=== PATIENT | female | born 1955 | race Caucasian/White ===

== ENCOUNTER 2017-06-14 18:36 | Emergency (ER) | payer OTHER ==
[2017-06-14 18:45] VITALS: BP 142/83; PULSE 90; TEMP 98.3; BMI 26.1
[2017-06-14] MEDS ORDERED: IBUPROFEN 400 MG TABLET (FP) PO ONE ×2 (19:58→20:02)
--- NOTE | 2017-06-14 20:01 | PDOC ---
History of Present Illness - General Chief Complaint: Pain, Acute Stated Complaint: PAIN, ACUTE Time Seen by Provider: 06/14/17 18:58 History Source: Patient Exam Limitations: No Limitations - History of Present Illness Initial Comments: 06/14/17 22:51 Chief complaint: Right lateral rib tenderness History of present illness: Patient is a 62-year-old female with a history of diverticulitis, hyperlipidemia, GERD, renal calculi and cholelithiasis here today complaining of right lateral rib tenderness after bending over a seat pushing something in that area in her car a few days ago. Patient reports the pain is worse with palpation or with movement of torso bilaterally. Denies any nausea, vomiting, any urinary symptoms. Patient would like x-ray of rib area pointing to her right lateral distal ribs where area is tender. Patient has not taken anything for pain is requesting some ibuprofen. She denies any difficulty breathing or shortness of breath. 06/14/17 23:06 06/14/17 23:08 Timing/Duration: intermittent (WITH MOVEMENT) Severity: moderate Associated Symptoms: reports: other (RT. LATERAL RIB PAIN ) Past History - Past Medical History Allergies/Adverse Reactions: Allergies Allergy/AdvReac Type Severity Reaction Status Date / Time No Known Allergies Allergy Verified 06/14/17 18:45 Home Medications: Ambulatory Orders Atorvastatin Ca [Lipitor] 20 mg PO DAILY 03/23/15 Naproxen [Naprosyn -] 500 mg PO BID PRN #14 tablet 06/14/17 Anemia: No Asthma: No Cancer: No Cardiac Disorders: No CVA: No COPD: No CHF: No Dementia: No Diabetes: No GI Disorders: Yes (gerd/diverticulitis) Disorders: No HTN: No Hypercholesterolemia: Yes Liver Disease: No Seizures: No Thyroid Disease: No - Surgical History Abdominal Surgery: No Appendectomy: No Cardiac Surgery: No Cholecystectomy: No Lung Surgery: No Neurologic Surgery: No Orthopedic Surgery: No - Suicide/Smoking/Psychosocial Hx Smoking History: Never smoked Hx Alcohol Use: No Drug/Substance Use Hx: No Substance Use Type: None Review of Systems - Review of Systems Able to Perform ROS?: Yes Constitutional: No: Symptoms Reported HEENTM: No: Symptoms Reported Respiratory: No: Symptoms reported Cardiac (ROS): No: Symptoms Reported ABD/GI: No: Symptoms Reported : No: Symptoms Reported Musculoskeletal: Yes: Joint Pain (RT. LATERAL RIB TENDERNESS) Integumentary: Yes: Symptoms Reported Neurological: Yes: Symptoms reported *Physical Exam - Vital Signs Last Vital Signs Temp Pulse Resp BP Pulse Ox 98.3 F 90 18 142/83 98 06/14/17 18:42 06/14/17 18:42 06/14/17 18:42 06/14/17 18:42 06/14/17 18:42 - Physical Exam General Appearance: Yes: Appropriately Dressed Respiratory/Chest: positive: Lungs Clear, Normal Breath Sounds. negative: Chest Tender, Respiratory Distress Cardiovascular: positive: Regular Rhythm, Regular Rate, S1, S2 Gastrointestinal/Abdominal: positive: Normal Bowel Sounds, Soft, Other. negative: Tender, Organomegaly, Distended, Guarding, Rebound, Tenderness, Hepatomegaly, Spleenomegaly Musculoskeletal: positive: Normal Inspection, Other (RT. LATERAL PROXIMAL RIB PAIN point tenderness). negative: CVA Tenderness, CVA Tenderness (R), CVA Tenderness (L), Vertebral Tenderness Extremity: positive: Normal Capillary Refill, Normal Inspection, Normal Range of Motion Integumentary: positive: Normal Color Neurologic: positive: Fully Oriented, Alert, Normal Response, Responsive Medical Decision Making - Medical Decision Making 06/14/17 22:54 Patient is a 62-year-old female with a history of diverticulitis, GERD, renal calculi and cholelithiasis here today complaining of right lateral rib tenderness after bending over a seat pushing something in that area in her car a few days ago. Patient reports the pain is worse with palpation or with movement of torso bilaterally. Denies any nausea, vomiting, any urinary symptoms. Patient would like x-ray of rib area pointing to her right lateral distal ribs where area is tender. Patient has not taken anything for pain is requesting some ibuprofen. She denies any difficulty breathing or shortness of breath. Patient denies any fall. R/O rib fracture r/o acute cholelithiasis r/o renal calculi hematuria urine C & S PLAN: ibuprofen 800 mg po now naprosyn 500 mg bid prn #14 tabs xray rt. rib series incidental note is made of a 0.7 density within the partially imaged right upper abdomen which could be cholelithiasis or nephrolithiasis per Dr. Jung no acute fracture noted of the ribs Will get ultrasound of abdomen limited Dr. Jung does not think that this is acute cholecystitis or any renal calculi noted 06/14/17 22:58 Laboratory Tests 06/14/17 22:40 Urine Color Yellow Urine Appearance Slcloudy Urine pH 5.0 D Ur Specific [place] Pending Urine Glucose (UA) Negative Urine Ketones Trace H Urine Blood 1+ H Urine Nitrite Negative Urine Bilirubin Negative Urine Urobilinogen Negative Ur Leukocyte Esterase Pending Urine RBC 2 Urine WBC 4 Ur Epithelial Cells Rare Urine Bacteria Rare Hyaline Casts 1 Urine Mucus Few 06/14/17 22:59 06/14/17 23:03 06/14/17 23:09 *DC/Admit/Observation/Transfer Diagnosis at time of Disposition: Contusion of rib on right side Qualifiers: Encounter type: initial encounter Qualified Code(s): S20.211A - Contusion of right front wall of thorax, initial encounter Hematuria Qualifiers: Hematuria type: unspecified type Qualified Code(s): R31.9 - Hematuria, unspecified - Discharge Dispostion Disposition: HOME Condition at time of disposition: Stable - Prescriptions Prescriptions: Naproxen [Naprosyn -] 500 mg PO BID PRN #14 tablet PRN Reason: Pain - Patient Instructions Additional Instructions: Follow-up with your primary care provider next week And return to emergency room if any nausea, vomiting, chills, fever, or worsening pain Drink more fluids especially water And avoid twisting your torso or lying on your right side An follow up with urologist for further evaluation PATIENT voiced understanding of discharge instructions and all questions were answered
[2017-06-14 22:34] LABS: URINE APPEARANCE SLCLOUDY; URINE BILIRUBIN NEGATIVE (NEGATIVE); URINE BLOOD 1+ (NEGATIVE); URINE COLOR YELLOW; URINE GLUCOSE (UA) NEGATIVE (NEGATIVE); URINE KETONE TRACE (NEGATIVE); URINE NITRITE NEGATIVE (NEGATIVE); URINE UROBILINOGEN NEGATIVE mg/dL (0.2-1.0)
[2017-06-14 22:47] LABS: URINE PROTEIN 1+ (NEGATIVE)
[2017-06-14 22:48] LABS: URINE BACTERIA RARE /hpf (NONE SEEN); URINE HYALINE CAST 1 /lpf; URINE MUCUS FEW; URINE RBC 2 /hpf (0-3); URINE WBC 4 /hpf (3-5)
[2017-06-15 11:37] LABS: URINE LEUK ESTERASE Negative (NEGATIVE)
== END 2017-06-14 23:11 | disposition home or self-care (01) ==
LOC: JERFT 18:36
DX: S20.211A Contusion of right front wall of thorax, initial encounter (principal); R31.9 Hematuria, unspecified; E78.5 Hyperlipidemia, unspecified; Z87.19 Personal history of other diseases of the digestive system; Z87.442 Personal history of urinary calculi; X58.XXXA Exposure to other specified factors, initial encounter; Y93.89 Activity, other specified; Y92.89 Other specified places as the place of occurrence of the external cause
CPT/HCPCS: 71101-TC-RT; 76705-TC; 81003; 81015; 87086; 99281-25

== ENCOUNTER 2021-07-24 19:44 | Emergency (ER) | payer OTHER ==
[2021-07-24 20:03] VITALS: BMI 27.1
[2021-07-24] MEDS ORDERED: ACETAMINOPHEN 325 MG TABLET (FP) PO ONE (22:52)
[2021-07-24] MEDS ORDERED: LACTATED RINGERS SOLUTION 1000 ML INFUS.BAG IV ONE (22:52)
[2021-07-24] MEDS ORDERED: guaiFENesin 200 MG/10 ML 10 ML UNIT-DOSE CUPS PO ONE (22:52)
[2021-07-24] MEDS ORDERED: guaiFENesin 200 MG/10 ML 10 ML UNIT-DOSE CUPS ONE (22:57)
[2021-07-24] MEDS ORDERED: ACETAMINOPHEN 325 MG TABLET (FP) ONE (22:57)
[2021-07-24 23:44] LABS: BASO % 1.2 % (0-2.0); EOS % 0.1 % (0-4.5); HEMATOCRIT 42.2 % (32.4-45.2); HEMOGLOBIN 14.6 GM/dL (10.7-15.3); MCH 29.5 pg (25.7-33.7); MCHC 34.5 g/dl (32.0-36.0); MEAN CELL VOLUME 85.4 fl (80-96); MEAN PLT VOLUME 7.9 fl (7.5-11.1); MONO % 7.5 % (3.8-10.2); NEUT % 66.2 % (42.8-82.8); PLATELET COUNT 299 10^3/uL (134-434); RBC 4.95 M/mm3 (3.60-5.2); RDW 14.2 % (11.6-15.6); WHITE BLOOD COUNT 5.6 K/mm3 (4.0-10.0)
[2021-07-25 00:03] LABS: CHLORIDE 105 mmol/L (98-107); SODIUM 139 mmol/L (136-145)
[2021-07-25 00:05] LABS: CALCIUM 8.6 mg/dL (8.5-10.1)
[2021-07-25 00:06] LABS: ALBUMIN 3.9 g/dl (3.4-5.0); ANION GAP 5 MMOL/L (8-16); BLOOD UREA NITROGEN 17.2 mg/dL (7-18); CO2 29 mmol/L (21-32); GLUCOSE,RANDOM 110 mg/dL (74-106); LIPASE 155 U/L (73-393); MAGNESIUM 1.4 mg/dL (1.8-2.4)
[2021-07-25 00:09] LABS: CREATININE 0.8 mg/dL (0.55-1.3); SGOT/AST 44 U/L (15-37); SGPT/ALT 70 U/L (13-61)
[2021-07-25 00:10] LABS: BILIRUBIN,TOTAL 0.2 mg/dL (0.2-1); TOT PROT 7.2 g/dl (6.4-8.2)
[2021-07-25 00:12] LABS: ALK PHOS 88 U/L (45-117)
[2021-07-25 00:17] LABS: EPI CELLS 32 /uL (0-25.1); HYALINE CASTS 5 /uL (0-3.1); URINE APPEARANCE CLEAR; URINE BACTERIA 556 /uL (0-1359); URINE BILIRUBIN NEGATIVE (NEGATIVE); URINE COLOR YELLOW; URINE GLUCOSE (UA) NEGATIVE (NEGATIVE); URINE KETONE 1+ (NEGATIVE); URINE LEUK ESTERASE NEGATIVE (NEGATIVE); URINE NITRITE NEGATIVE (NEGATIVE); URINE PROTEIN TRACE (NEGATIVE); URINE RBC 14 /uL (0-23.9); URINE UROBILINOGEN 0.2 mg/dL (0.2-1.0); URINE WBC 48 /uL (0-25.8)
[2021-07-25] MEDS ORDERED: CASIRIVIMAB/IMDEVIMAB 10 ML in SODIUM CHLORIDE 100 ML IVPB ONE (01:22)
[2021-07-25 02:18] VITALS: TEMP 98
[2021-07-25 03:42] VITALS: BP 162/63; PULSE 89
== END 2021-07-25 04:36 | disposition home or self-care (01) ==
LOC: JER 19:44
DX: U07.1 COVID-19 (principal); R55 Syncope and collapse
CPT/HCPCS: 36415; 71046-TC-FY; 80053; 81003; 83690; 83735; 84484; 85025; 87086; 87804; 93005; 93010; 99285-25; C9803; Q0240; U0003; U0005

== ENCOUNTER 2023-01-11 16:04 | Emergency (ER) | payer OTHER ==
[2023-01-11 16:16] VITALS: BP 154/70; PULSE 78; RESP 18; TEMP 98; BMI 27.1
[2023-01-11] MEDS ORDERED: ACETAMINOPHEN 500 MG TABLET (FP) PO ONE (17:03)
[2023-01-11] MEDS ORDERED: ACETAMINOPHEN 500 MG TABLET (FP) ONE (17:16)
[2023-01-11 17:40] LABS: HEMATOCRIT 39.6 % (32.4-45.2); MCH 29.5 pg (25.7-33.7); MCHC 35.3 g/dl (32.0-36.0); MEAN CELL VOLUME 83.6 fl (80-96); MEAN PLT VOLUME 8.6 fl (7.5-11.1); PLATELET COUNT 306 10^3/uL (134-434); RBC 4.74 M/mm3 (3.60-5.2); RDW 13.7 % (11.6-15.6); WHITE BLOOD COUNT 9.7 K/mm3 (4.0-10.0)
[2023-01-11 18:59] LABS: ALBUMIN 3.7 g/dl (3.4-5.0); ALK PHOS 83 U/L (45-117); ANION GAP 11 MMOL/L (8-16); BILIRUBIN,DIRECT 0.1 mg/dL (0.0-0.2); BILIRUBIN,TOTAL 0.3 mg/dL (0.2-1); BLOOD UREA NITROGEN 20.6 mg/dL (7-18); CALCIUM 9.1 mg/dL (8.5-10.1); CHLORIDE 108 mmol/L (98-107); CO2 21 mmol/L (21-32); CREATININE 0.7 mg/dL (0.55-1.3); GLUCOSE,RANDOM 90 mg/dL (74-106); POTASSIUM 3.8 mmol/L (3.5-5.1); SGOT/AST 30 U/L (15-37); SGPT/ALT 46 U/L (13-61); SODIUM 140 mmol/L (136-145); TOT PROT 6.9 g/dl (6.4-8.2)
== END 2023-01-11 22:02 | disposition home or self-care (01) ==
LOC: JERFT 16:04
DX: R07.89 Other chest pain (principal); M25.511 Pain in right shoulder
CPT/HCPCS: 36415; 71046-TC-FY; 80048; 80076; 82550; 84484; 85027; 93005; 93010; 99285-25

== ENCOUNTER 2024-03-14 23:17 | Emergency (ER) | payer OTHER ==
[2024-03-14 23:32] VITALS: BMI 27.1
[2024-03-14] MEDS: LIDOCAINE 5% TOPICAL PATCH TP ONE (23:42)
[2024-03-14] MEDS: LIDOCAINE PATCH REMOVAL MC SCH (23:42)
[2024-03-14] MEDS ORDERED: LIDOCAINE 4% PATCH TP ONE (23:51)
[2024-03-15] MEDS: ACETAMINOPHEN 1000 MG/100 ML BAG IVPB ONE ×2 (00:58→01:15)
[2024-03-15] MEDS: SODIUM CHLORIDE 0.9% 500 ML INFUS.BAG IV ONE (01:14)
[2024-03-15] MEDS: diazePAM 5 MG TABLET PO ONE (01:14)
[2024-03-15] MEDS ORDERED: ACETAMINOPHEN INJECTION 100 ML IVPB ONE (01:16)
[2024-03-15 01:19] LABS: BASO % 0.2 % (0-2.0); EOS % 0.1 % (0-4.5); HEMATOCRIT 43.2 % (32.4-45.2); HEMOGLOBIN 14.7 GM/dL (10.7-15.3); LYMPH % 4.5 % (8-40); MCH 29.1 pg (25.7-33.7); MCHC 34.1 g/dl (32.0-36.0); MEAN CELL VOLUME 85.2 fl (80-96); MEAN PLT VOLUME 7.3 fl (7.5-11.1); MONO % 5.7 % (3.8-10.2); NEUT % 89.5 % (42.8-82.8); PLATELET COUNT 296 10^3/uL (134-434); RBC 5.07 M/mm3 (3.60-5.2); RDW 14.9 % (11.6-15.6); WHITE BLOOD COUNT 15.6 K/mm3 (4.0-10.0)
[2024-03-15] MEDS: PIPERACILLIN/TAZOB 3.375 GM 3.375 GM in DEXTROSE 5%-WATER - 50 ML IVPB ONE (01:35)
[2024-03-15 01:36] LABS: POTASSIUM 3.9 mmol/L (3.5-5.1)
[2024-03-15] MEDS ORDERED: PIPERACILLIN/TAZOB 3.375 GM 3.375 GM/50 ML BAG IVPB ONE (01:37)
[2024-03-15 01:38] LABS: CALCIUM 9.2 mg/dL (8.5-10.1)
[2024-03-15 01:39] LABS: ALBUMIN 3.9 g/dl (3.4-5.0); BLOOD UREA NITROGEN 23.5 mg/dL (7-18)
[2024-03-15 01:42] LABS: CREATININE 1.3 mg/dL (0.55-1.3)
[2024-03-15 01:44] LABS: BILIRUBIN,TOTAL 0.6 mg/dL (0.2-1); TOT PROT 7.3 g/dl (6.4-8.2)
[2024-03-15 03:17] VITALS: RESP 17
[2024-03-15] MEDS ORDERED: AMOX TR/POT CLAV 875MG/125MG TABLETS (FP) PO ONE (04:32)
[2024-03-15 06:17] VITALS: BP 125/72; PULSE 95; TEMP 98.2
== END 2024-03-15 06:54 | disposition home or self-care (01) ==
LOC: JER 23:17
PROC: 3E03329 Introduction of Other Anti-infective into Peripheral Vein, Percutaneous Approach (ICD-10-PCS; principal; 2024-03-15)
PROC: 3E033NZ Introduction of Analgesics, Hypnotics, Sedatives into Peripheral Vein, Percutaneous Approach (ICD-10-PCS; 2024-03-15)
DX: K52.9 Noninfective gastroenteritis and colitis, unspecified (principal); M54.50 Low back pain, unspecified; R51.9 Headache, unspecified; R50.9 Fever, unspecified; J34.89 Other specified disorders of nose and nasal sinuses; M79.10 Myalgia, unspecified site; R11.2 Nausea with vomiting, unspecified; R53.81 Other malaise; Z20.822 Contact with and (suspected) exposure to COVID-19
CPT/HCPCS: 0241U-QW; 36415; 74177-TC; 80053; 85025; 93005; 93010; 96365; 96375; 99285-25; J0131; Q9967

== ENCOUNTER 2024-05-16 12:41 | Observation (INO) | payer OTHER ==
[2024-05-16] MEDS ORDERED: FAMOTIDINE 20 MG TABLET ONE (14:03)
[2024-05-16] MEDS ORDERED: NITROGLYCERIN SUBLINGUAL 1/150 0.4 MG TAB ONE (14:04)
[2024-05-16] MEDS ORDERED: MAG HYDROX/AL HYDROX/SIMETH 30 ML UNIT-DOSE CUP ONE (14:05)
[2024-05-16 14:32] LABS: BASO % 0.8 % (0-2.0); EOS % 1.6 % (0-4.5); HEMATOCRIT 42.6 % (32.4-45.2); HEMOGLOBIN 14.4 GM/dL (10.7-15.3); MCH 28.9 pg (25.7-33.7); MCHC 33.8 g/dl (32.0-36.0); MEAN CELL VOLUME 85.5 fl (80-96); MEAN PLT VOLUME 8.1 fl (7.5-11.1); MONO % 7.5 % (3.8-10.2); NEUT % 59.1 % (42.8-82.8); PLATELET COUNT 340 10^3/uL (134-434); RBC 4.98 M/mm3 (3.60-5.2); RDW 14.2 % (11.6-15.6); WHITE BLOOD COUNT 7.5 K/mm3 (4.0-10.0)
[2024-05-16] MEDS: MAG HYDROX/AL HYDROX/SIMETH 30 ML UNIT-DOSE CUP PO ONE (14:32)
[2024-05-16] MEDS: NITROGLYCERIN SUBLINGUAL 1/150 0.4 MG TAB SL ONE (14:32)
[2024-05-16] MEDS: FAMOTIDINE 20 MG TABLET PO ONE (14:32)
[2024-05-16 14:33] LABS: URINE APPEARANCE CLEAR; URINE BILIRUBIN NEGATIVE (NEGATIVE); URINE COLOR YELLOW; URINE GLUCOSE (UA) NEGATIVE (NEGATIVE); URINE KETONE NEGATIVE (NEGATIVE); URINE LEUK ESTERASE NEGATIVE (NEGATIVE); URINE NITRITE NEGATIVE (NEGATIVE); URINE PROTEIN NEGATIVE (NEGATIVE); URINE UROBILINOGEN 0.2 mg/dL (0.2-1.0)
[2024-05-16 14:58] LABS: CHLORIDE 116 mmol/L (98-107); SODIUM 146 mmol/L (136-145)
[2024-05-16 15:00] LABS: CALCIUM 7.2 mg/dL (8.5-10.1); CO2 21 mmol/L (21-32)
[2024-05-16 15:01] LABS: BLOOD UREA NITROGEN 15.7 mg/dL (7-18); GLUCOSE,RANDOM 75 mg/dL (74-106)
[2024-05-16 15:03] LABS: ANION GAP 9 mmol/L (4-13); POTASSIUM 2.6 mmol/L (3.5-5.1)
[2024-05-16 15:04] LABS: CREATININE 0.4 mg/dL (0.55-1.3); SGOT/AST 21 U/L (15-37); SGPT/ALT 29 U/L (13-61)
[2024-05-16 15:05] LABS: BILIRUBIN,TOTAL 0.4 mg/dL (0.2-1); TOT PROT 5.3 g/dl (6.4-8.2)
[2024-05-16 15:07] LABS: ALK PHOS 63 U/L (45-117)
[2024-05-16] MEDS ORDERED: POTASSIUM CHLORIDE ORAL LIQUID 20 MEQ/15 ML ONE (15:13)
[2024-05-16] MEDS: POTASSIUM CHLORIDE ORAL LIQUID 20 MEQ/15 ML PO ONE (15:26)
[2024-05-16] MEDS: ACETAMINOPHEN 325 MG TABLET (FP) PO ONE (15:37)
[2024-05-16] MEDS: LABETALOL HCL 5 MG/1 ML (100MG/20 ML VIAL) IVPUSH ONE (15:38)
[2024-05-16 15:54] VITALS: BMI 26.3
[2024-05-16] MEDS ORDERED: ASPIRIN 81 MG CHEWABLE TABLETS ONE (17:47)
[2024-05-16] MEDS: ASPIRIN 81 MG CHEWABLE TABLETS PO ONE (17:49)
[2024-05-16] MEDS: LOSARTAN POTASSIUM 50 MG TABLET PO SCH (18:23)
[2024-05-16] MEDS: amLODIPine BESYLATE 5 MG TABLET (FP) PO SCH (18:23)
[2024-05-16] MEDS: HEPARIN NA (PORCINE) 5,000 UNITS/ML 1ML VIAL SQ SCH (21:21)
[2024-05-16] MEDS: LOSARTAN POTASSIUM 50 MG TABLET PO ONE (22:12)
[2024-05-17 07:13] LABS: BASO % 0.7 % (0-2.0); EOS % 2.7 % (0-4.5); HEMATOCRIT 43.3 % (32.4-45.2); HEMOGLOBIN 14.6 GM/dL (10.7-15.3); LYMPH % 28.9 % (8-40); MCH 28.8 pg (25.7-33.7); MCHC 33.8 g/dl (32.0-36.0); MEAN CELL VOLUME 85.2 fl (80-96); MEAN PLT VOLUME 8.4 fl (7.5-11.1); MONO % 6.9 % (3.8-10.2); NEUT % 60.8 % (42.8-82.8); PLATELET COUNT 327 10^3/uL (134-434); RBC 5.08 M/mm3 (3.60-5.2); RDW 14.5 % (11.6-15.6); WHITE BLOOD COUNT 6.8 K/mm3 (4.0-10.0)
[2024-05-17 07:22] LABS: POTASSIUM 3.3 mmol/L (3.5-5.1)
[2024-05-17 07:27] LABS: BLOOD UREA NITROGEN 16.1 mg/dL (7-18)
[2024-05-17 07:30] LABS: CREATININE 0.7 mg/dL (0.55-1.3)
[2024-05-17 07:31] LABS: BILIRUBIN,TOTAL 0.7 mg/dL (0.2-1); TOT PROT 6.8 g/dl (6.4-8.2)
[2024-05-17 07:34] LABS: ALBUMIN 3.7 g/dl (3.4-5.0); CALCIUM 8.8 mg/dL (8.5-10.1)
[2024-05-17] MEDS: PANTOPRAZOLE 20 MG TABLET PO SCH (09:53)
[2024-05-17] MEDS: ACETAMINOPHEN 325 MG TABLET (FP) PO PRN (14:46)
[2024-05-17 15:25] VITALS: BP 127/64; PULSE 83; RESP 18; TEMP 97.9
[2024-05-17] MEDS ORDERED: ATORVASTATIN CA 20 MG TABLET (FP) PO SCH (22:00)
== END 2024-05-17 18:30 | disposition home or self-care (01) ==
LOC: JER 12:41 → JERBED 16:14 → UNDOADMOB 16:14 → OBSVTOIN 17:53 → INTOOBSV 17:53 → J4W 18:28 → JERBED 18:28 → J4W 05-17 12:06 → JERBED 05-17 13:00
PROVIDERS: ADMIT Internal Medicine; ATTEND Internal Medicine
DX: R07.89 Other chest pain (principal); I10 Essential (primary) hypertension; E78.5 Hyperlipidemia, unspecified; K21.9 Gastro-esophageal reflux disease without esophagitis; E87.6 Hypokalemia; E87.0 Hyperosmolality and hypernatremia
CPT/HCPCS: 36415; 70450-TC; 71045-TC-FY; 71275-TC; 74174-TC; 80053; 80061; 81003; 82088; 83036; 83735; 84443; 84484; 85025; 87086; 93005; 93010; 99285-25; G0378; J1644; Q9967

== ENCOUNTER 2024-06-04 12:17 | Observation (INO) | payer OTHER ==
[2024-06-04 12:32] VITALS: BMI 26.3
[2024-06-04 14:39] LABS: HEMATOCRIT 41.8 % (32.4-45.2); HEMOGLOBIN 14.3 GM/dL (10.7-15.3); MCH 28.5 pg (25.7-33.7); MCHC 34.1 g/dl (32.0-36.0); MEAN CELL VOLUME 83.5 fl (80-96); MEAN PLT VOLUME 7.8 fl (7.5-11.1); PLATELET COUNT 408 10^3/uL (134-434); RBC 5.01 M/mm3 (3.60-5.2); RDW 13.9 % (11.6-15.6); WHITE BLOOD COUNT 11.2 K/mm3 (4.0-10.0)
[2024-06-04 14:40] LABS: VENOUS BASE EXCESS 5.1 mmol/L (-2-2); VENOUS O2 SATURATION 49.7 % (70-80); VENOUS PCO2 33.9 mmHg (38-52); VENOUS PH 7.528 (7.310-7.410)
[2024-06-04] MEDS ORDERED: ASPIRIN 81 MG CHEWABLE TABLETS ONE (14:40)
[2024-06-04] MEDS: ASPIRIN 81 MG CHEWABLE TABLETS PO ONE (14:44)
[2024-06-04 14:48] LABS: INR 1.09 (0.83-1.09); PROTHROMBIN TIME (PATIENT) 12.5 SEC (9.7-13.0)
[2024-06-04 15:00] LABS: ANISOCYTOSIS 0; MACROCYTOSIS 0
[2024-06-04 15:06] LABS: CHLORIDE 104 mmol/L (98-107); SODIUM 140 mmol/L (136-145)
[2024-06-04 15:08] LABS: CALCIUM 8.6 mg/dL (8.5-10.1)
[2024-06-04 15:09] LABS: ALBUMIN 3.9 g/dl (3.4-5.0); BLOOD UREA NITROGEN 22.5 mg/dL (7-18); CO2 27 mmol/L (21-32); GLUCOSE,RANDOM 89 mg/dL (74-106)
[2024-06-04 15:12] LABS: CREATININE 0.8 mg/dL (0.55-1.3); SGOT/AST 20 U/L (15-37); SGPT/ALT 30 U/L (13-61)
[2024-06-04 15:14] LABS: BILIRUBIN,TOTAL 0.6 mg/dL (0.2-1); TOT PROT 7.4 g/dl (6.4-8.2)
[2024-06-04 15:15] LABS: ALK PHOS 91 U/L (45-117)
[2024-06-04 15:56] LABS: ANION GAP 9 mmol/L (4-13); MAGNESIUM 0.8 mg/dL (1.8-2.4); POTASSIUM 2.6 mmol/L (3.5-5.1)
[2024-06-04] MEDS ORDERED: MAGNESIUM SULFATE IN WATER 2 GM/50 ML IVPB IVPB ONE (16:13)
[2024-06-04] MEDS ORDERED: POTASSIUM CHLORIDE ORAL LIQUID 20 MEQ/15 ML ONE (16:14)
[2024-06-04] MEDS: MAGNESIUM SULFATE IN WATER 2 GM/50 ML IVPB IVPB ONE (16:31)
[2024-06-04] MEDS: POTASSIUM CHLORIDE ORAL LIQUID 20 MEQ/15 ML PO ONE (16:32)
[2024-06-04] MEDS: POTASSIUM CHLORIDE TABS 20 MEQ TABLET.ER (FP) PO ONE (16:45)
[2024-06-04] MEDS ORDERED: NITROGLYCERIN SUBLINGUAL 1/150 0.4 MG TAB SL PRN (17:27)
[2024-06-04] MEDS: HEPARIN NA (PORCINE) 5,000 UNITS/ML 1ML VIAL SQ SCH (22:53)
[2024-06-05 08:39] LABS: BASO % 0.6 % (0-2.0); EOS % 0.9 % (0-4.5); HEMATOCRIT 40.9 % (32.4-45.2); HEMOGLOBIN 13.8 GM/dL (10.7-15.3); LYMPH % 18.3 % (8-40); MCH 28.6 pg (25.7-33.7); MCHC 33.7 g/dl (32.0-36.0); MEAN PLT VOLUME 7.6 fl (7.5-11.1); MONO % 7.1 % (3.8-10.2); NEUT % 73.1 % (42.8-82.8); PLATELET COUNT 371 10^3/uL (134-434); RBC 4.82 M/mm3 (3.60-5.2); RDW 14.4 % (11.6-15.6); WHITE BLOOD COUNT 8.4 K/mm3 (4.0-10.0)
[2024-06-05 08:52] LABS: POTASSIUM 3.4 mmol/L (3.5-5.1)
[2024-06-05 08:54] LABS: BLOOD UREA NITROGEN 20.1 mg/dL (7-18); CALCIUM 8.1 mg/dL (8.5-10.1)
[2024-06-05 08:58] LABS: CREATININE 0.6 mg/dL (0.55-1.3)
[2024-06-05] MEDS ORDERED: ACETAMINOPHEN 500 MG TABLET (FP) PO PRN (09:20)
[2024-06-05] MEDS: MAGNESIUM 2GM/50ML STERILE WATER IVPB IVPB ONE (11:32)
[2024-06-05] MEDS: PANTOPRAZOLE 20 MG TABLET PO SCH (11:33)
[2024-06-05] MEDS: ATORVASTATIN CA 20 MG TABLET (FP) PO SCH (11:33)
[2024-06-05] MEDS: LOSARTAN POTASSIUM 50 MG TABLET PO SCH (11:33)
[2024-06-05] MEDS: amLODIPine BESYLATE 5 MG TABLET (FP) PO SCH (11:33)
[2024-06-05] MEDS: POTASSIUM CHLORIDE ORAL LIQUID 20 MEQ/15 ML PO ONE (11:37)
[2024-06-05] MEDS: KCL 10 MEQ IVPB 10 MEQ/100 ML INFUS.BAG IVPB SCH (11:38)
[2024-06-05] MEDS: MAG HYDROX/AL HYDROX/SIMETH 30 ML UNIT-DOSE CUP PO ONE (11:39)
[2024-06-05] MEDS: COLCHICINE 0.6 MG TAB PO SCH (15:44)
[2024-06-06 01:12] VITALS: RESP 20
[2024-06-06 06:43] VITALS: TEMP 97.5
[2024-06-06 10:38] VITALS: BP 105/64; PULSE 89
== END 2024-06-06 14:49 | disposition home or self-care (01) ==
LOC: JER 12:17 → JERBED 16:32 → J4W 18:56
PROVIDERS: ADMIT Internal Medicine; ATTEND Internal Medicine
PROC: 3E033GC Introduction of Other Therapeutic Substance into Peripheral Vein, Percutaneous Approach (ICD-10-PCS; principal; 2024-06-04)
DX: R07.9 Chest pain, unspecified (principal); R10.13 Epigastric pain; I31.39 Other pericardial effusion (noninflammatory); E87.6 Hypokalemia; E83.42 Hypomagnesemia; K21.9 Gastro-esophageal reflux disease without esophagitis; K57.90 Diverticulosis of intestine, part unspecified, without perforation or abscess without bleeding; I10 Essential (primary) hypertension; E78.5 Hyperlipidemia, unspecified; R07.89 Other chest pain
CPT/HCPCS: 36415; 71046-TC-FY; 80048; 80053; 82550; 82553; 82803; 83735; 84484; 85025; 85610; 93005; 93010; 93306-TC; 93880-TC; 93971-TC; 96365; 96375; 96376; 99285-25; G0378; J1644

== ENCOUNTER 2024-11-06 12:50 | Observation (INO) | payer OTHER ==
[2024-11-06 13:02] VITALS: BMI 27.1
[2024-11-06 15:05] LABS: BASO % 0.2 % (0-2.0); EOS % 0.5 % (0-4.5); HEMATOCRIT 39.9 % (32.4-45.2); HEMOGLOBIN 13.8 GM/dL (10.7-15.3); LYMPH % 20.8 % (8-40); MCH 28.8 pg (25.7-33.7); MCHC 34.5 g/dl (32.0-36.0); MEAN CELL VOLUME 83.6 fl (80-96); MEAN PLT VOLUME 7.7 fl (7.5-11.1); MONO % 7.8 % (3.8-10.2); NEUT % 70.7 % (42.8-82.8); PLATELET COUNT 378 10^3/uL (134-434); RBC 4.78 M/mm3 (3.60-5.2); WHITE BLOOD COUNT 9.4 K/mm3 (4.0-10.0)
[2024-11-06 15:12] LABS: INR 1.14 (0.83-1.09); PROTHROMBIN TIME (PATIENT) 12.5 SEC (9.7-13.0)
[2024-11-06 15:15] LABS: ACTIVATED PTT 28.3 SECONDS (25.2-36.5)
[2024-11-06 15:28] LABS: CHLORIDE 105 mmol/L (98-107); POTASSIUM 3.1 mmol/L (3.5-5.1); SODIUM 141 mmol/L (136-145)
[2024-11-06 15:30] LABS: ALBUMIN 3.6 g/dl (3.4-5.0); ANION GAP 5 mmol/L (4-13); CO2 32 mmol/L (21-32)
[2024-11-06 15:31] LABS: BLOOD UREA NITROGEN 16.2 mg/dL (7-18); GLUCOSE,RANDOM 107 mg/dL (74-106)
[2024-11-06 15:33] LABS: SGPT/ALT 32 U/L (13-61)
[2024-11-06 15:34] LABS: CREATININE 0.8 mg/dL (0.55-1.3); SGOT/AST 26 U/L (15-37)
[2024-11-06 15:35] LABS: BILIRUBIN,TOTAL 0.5 mg/dL (0.2-1); TOT PROT 6.4 g/dl (6.4-8.2)
[2024-11-06 15:36] LABS: ALK PHOS 81 U/L (45-117)
[2024-11-06 15:38] LABS: MAGNESIUM 0.9 mg/dL (1.8-2.4)
[2024-11-06] MEDS ORDERED: MAGNESIUM SULF 50% (8.12 MEQ/2 ML-1 GM VIAL) IVPB ONE (16:05)
[2024-11-06] MEDS: SODIUM CHLORIDE 1,000 ML IV STA (16:50)
[2024-11-06] MEDS: MAGNESIUM IN WATER 4 GM/50 ML PREMIX BAG IVPB ONE (16:50)
[2024-11-06] MEDS ORDERED: KCL 10 MEQ IVPB 10 MEQ/100 ML INFUS.BAG IVPB ONE (18:07)
[2024-11-06] MEDS: KCL 10 MEQ IVPB 10 MEQ/100 ML INFUS.BAG IVPB SCH (18:17)
[2024-11-06] MEDS: KCL 20 MEQ PREMIX BAG 20 MEQ/100 ML INFUS.BAG IVPB SCH (19:16)
[2024-11-06] MEDS: MAGNESIUM SULF 50% (8.12 MEQ/2 ML-1 GM VIAL) IVPB ONE (19:45)
[2024-11-06] MEDS ORDERED: DOCUSATE SODIUM 100 MG CAPSULE (FP) PO PRN (19:54)
[2024-11-06] MEDS ORDERED: KCL 10 MEQ IVPB 20 MEQ/200 ML INFUS.BAG IVPB ONE (21:02)
[2024-11-06 23:38] VITALS: RESP 18
[2024-11-06] MEDS: D5-1/2NS+20 MEQ KCL - 20 MEQ/1,000 ML INFUS.BAG IV SCH (23:53)
[2024-11-07 02:48] LABS: POTASSIUM 3.5 mmol/L (3.5-5.1)
[2024-11-07 02:50] LABS: BLOOD UREA NITROGEN 14.9 mg/dL (7-18); CALCIUM 7.8 mg/dL (8.5-10.1)
[2024-11-07 02:54] LABS: CREATININE 0.8 mg/dL (0.55-1.3)
[2024-11-07] MEDS: ACETAMINOPHEN 325 MG TABLET (FP) PO PRN (04:16)
[2024-11-07 05:06] LABS: MAGNESIUM 2.9 mg/dL (1.8-2.4)
[2024-11-07 08:53] LABS: HEMOGLOBIN 14.7 GM/dL (10.7-15.3); MCH 28.9 pg (25.7-33.7); MCHC 34.1 g/dl (32.0-36.0); MEAN CELL VOLUME 84.7 fl (80-96); MEAN PLT VOLUME 7.9 fl (7.5-11.1); PLATELET COUNT 391 10^3/uL (134-434); RBC 5.08 M/mm3 (3.60-5.2); RDW 14.1 % (11.6-15.6); WHITE BLOOD COUNT 9.6 K/mm3 (4.0-10.0)
[2024-11-07 09:06] LABS: POTASSIUM 3.7 mmol/L (3.5-5.1)
[2024-11-07 09:08] LABS: BLOOD UREA NITROGEN 12.7 mg/dL (7-18); CALCIUM 7.8 mg/dL (8.5-10.1)
[2024-11-07 09:09] LABS: MAGNESIUM 2.9 mg/dL (1.8-2.4)
[2024-11-07 09:12] LABS: CREATININE 0.7 mg/dL (0.55-1.3); PHOSPHOROUS 3.1 mg/dL (2.5-4.9)
[2024-11-07] MEDS: PANTOPRAZOLE SOD 40 MG SUSPENSION PACKET PO SCH (09:18)
[2024-11-07] MEDS: COLCHICINE 0.6 MG TAB PO SCH (09:18)
[2024-11-07] MEDS: amLODIPine BESYLATE 5 MG TABLET (FP) PO SCH (09:26)
[2024-11-07] MEDS: LOSARTAN POTASSIUM 50 MG TABLET PO SCH (09:26)
[2024-11-07 15:27] VITALS: BP 121/67; PULSE 92; TEMP 98.7
[2024-11-07] MEDS ORDERED: ATORVASTATIN CA 20 MG TABLET (FP) PO SCH (22:00)
== END 2024-11-07 18:26 | disposition home or self-care (01) ==
LOC: JER 12:50 → JERBED 19:53 → J4S 22:31
PROVIDERS: ADMIT Internal Medicine; ATTEND Internal Medicine
PROC: 3E033GC Introduction of Other Therapeutic Substance into Peripheral Vein, Percutaneous Approach (ICD-10-PCS; principal; 2024-11-06)
DX: R07.89 Other chest pain (principal); E87.6 Hypokalemia; E83.42 Hypomagnesemia; I10 Essential (primary) hypertension; E78.5 Hyperlipidemia, unspecified; K21.9 Gastro-esophageal reflux disease without esophagitis; K59.00 Constipation, unspecified
CPT/HCPCS: 36415; 71046-TC-FY; 80048; 80053; 82550; 82553; 83735; 84100; 84484; 85025; 85027; 85610; 85730; 93005; 93010; 99285-25; G0378

== ENCOUNTER 2025-05-17 18:17 | Emergency (ER) | payer OTHER ==
[2025-05-17 18:38] VITALS: BMI 27.1
[2025-05-17 19:18] LABS: MCHC 33.3 g/dl (32.2-35.5); MEAN CELL VOLUME 85.9 fl (79.4-94.8); MEAN PLT VOLUME 10.0 fl (9.4-12.3); RDW 13.2 % (12.4-16.4)
[2025-05-17 19:19] LABS: INR 0.98 (0.83-1.09); PROTHROMBIN TIME (PATIENT) 10.7 SEC (9.7-13.0)
[2025-05-17 19:22] LABS: ACTIVATED PTT 28.3 SECONDS (25.2-36.5)
[2025-05-17 20:13] LABS: GLUCOSE,RANDOM 103.0 mg/dL (74-106)
[2025-05-17 20:14] LABS: TOT PROT 6.8 g/dl (6.4-8.2)
[2025-05-17 20:15] LABS: CO2 27.0 mmol/L (21-32)
[2025-05-17 20:16] LABS: ALK PHOS 83.0 U/L (40-150)
[2025-05-17 20:19] LABS: CREATININE 0.79 mg/dL (0.55-1.3); SGOT/AST 33.0 U/L (5-34); SGPT/ALT 57.0 U/L (0-55)
[2025-05-17 20:59] VITALS: BP 137/95; PULSE 83; RESP 17; TEMP 98.5
== END 2025-05-17 21:00 | disposition home or self-care (01) ==
LOC: JER 18:17
DX: R07.1 Chest pain on breathing (principal); R06.02 Shortness of breath; V89.2XXA Person injured in unspecified motor-vehicle accident, traffic, initial encounter
CPT/HCPCS: 36415; 71046-TC-FY; 80053; 83735; 84484; 85027; 85610; 85730; 93005; 93010; 99284-25